=== PATIENT | male | born 1965 | race Caucasian/White ===

== ENCOUNTER → 2018-06-08 10:31 | Outpatient (CLI) | payer OTHER, SELFPAY ==
--- NOTE | 2018-06-08 | DI.RAD.S_ITS ---
PROCEDURE: XR KNEE RT 1TO2V INDICATIONS: RIGHT KNEE PAIN TECHNIQUE: 2 views of the knee were acquired. COMPARISON: [facility], , XR KNEE 2V RIGHT, 12/21/2001, 11:13. FINDINGS: Bones: No fractures or dislocations. No suspicious bony lesions. Soft tissues: No joint effusion. No suspicious soft tissue calcifications. IMPRESSION: No fracture or dislocation. If clinical symptoms persist or clinical suspicion for pathology is high, a repeat examination in 7-10 days, or advanced imaging such as CT or MRI is suggested for further evaluation. Dictated by: Corrine Mendez M.D. on 06/08/2018 at 13:37 Approved by: Corrine Mendez M.D. on 06/08/2018 at 13:38
[2018-06-11 23:00] LABS: Albumin 4.5 g/dL (3.6-5.1); Sex Hormone Binding Globulin 82 nmol/L (10-50); Testosterone, Bioavailable 63.2 ng/dL (110.0-575.0); Testosterone, Total 519 ng/dL (250-1100); Testosterone,Free 30.7 pg/mL (46.0-224.0)
== END ==
PROVIDERS: PCP Internal Medicine; Visit Provider Internal Medicine
DX: R68.82 Decreased libido (principal); M25.561 Pain in right knee
CPT/HCPCS: 36415; 73560; 82040; 84270; 84403

== ENCOUNTER → 2018-06-26 07:56 | Outpatient (CLI) | payer OTHER, SELFPAY ==
[2018-06-26 09:40] LABS: Follicle Stimulating Hormone 4.44 mIU/mL; Luteinizing Hormone 2.69 mIU/mL
[2018-06-29 15:11] LABS: Albumin 4.2 g/dL (3.6-5.1); Sex Hormone Binding Globulin 73 nmol/L (10-50); Testosterone, Bioavailable 76.7 ng/dL (110.0-575.0); Testosterone, Total 588 ng/dL (250-1100); Testosterone,Free 39.8 pg/mL (46.0-224.0)
== END ==
PROVIDERS: PCP Internal Medicine; Visit Provider Internal Medicine
DX: R68.82 Decreased libido (principal)
CPT/HCPCS: 36415; 82040; 83001; 83002; 84270; 84403

== ENCOUNTER → 2021-02-12 16:57 | Outpatient (CLI) | payer OTHER, SELFPAY ==
[2021-02-12] MEDS: COVID-19 VACC #1, MRNA(MOD) 100 MCG/0.5 ML VIAL IM (17:08)
== END ==
PROVIDERS: PCP Family Medicine; Visit Provider Internal Medicine
DX: Z23 Encounter for immunization (principal)
CPT/HCPCS: 0011A; 91301

== ENCOUNTER → 2021-03-13 11:55 | Outpatient (CLI) | payer OTHER, SELFPAY ==
[2021-03-13] MEDS: COVID-19 VACC #2, MRNA(MOD) 100 MCG/0.5 ML VIAL IM (12:10)
== END ==
PROVIDERS: PCP Family Medicine; Visit Provider Internal Medicine
DX: Z23 Encounter for immunization (principal)
CPT/HCPCS: 0012A; 91301

== ENCOUNTER → 2021-06-22 08:41 | Outpatient (CLI) | payer OTHER, SELFPAY ==
[2021-06-22 09:39] LABS: Add Manual Diff / Slide Review NO; Basophils Absolute Auto 0 /uL (0-100); Basophils Percent Auto 0.3 % (0-2); Eosinophils Absolute Auto 200 /uL (0-450); Eosinophils Percent Auto 2.8 % (2-4); Hematocrit 41.3 % (41-53); Hemoglobin 13.9 g/dL (13.5-17.5); Lymphocytes Absolute Auto 3700 /uL (1100-4500); Lymphocytes Percent Auto 52.3 % (25-40); Mean Corpuscular HGB Conc 33.7 % (30-36); Mean Corpuscular Hemoglobin 30.6 PG (26-34); Mean Corpuscular Volume 90.7 fL (80-100); Monocytes Absolute Auto 700 /uL (0-900); Monocytes Percent Auto 10.1 % (3-14); Neutrophils Absolute Auto 2500 /uL (1500-7000); Neutrophils Percent Auto 34.5 % (50-75); Platelet Count 199 X10^3/uL (150-400); Red Blood Cell Count 4.55 X10^6/uL (4.5-5.9); Red Cell Distribution Width 12.8 % (11.6-14.8); White Blood Cell Count 7.1 X10^3/uL (4.5-11.0)
[2021-06-22 10:10] LABS: Alanine Aminotransferase 28 IU/L (<50); Albumin 4.2 g/dL (3.5-5.0); Albumin Globulin Ratio 1.5 (1.0-2.8); Alkaline Phosphatase 61 U/L (38-126); Aspartate Aminotransferase 32 IU/L (17-59); BUN Creatinine Ratio 27.5 (6-22); Bilirubin Total 0.5 mg/dL (0.2-1.3); Blood Urea Nitrogen 19 mg/dL (9-20); Calcium 9.6 mg/dL (8.4-10.2); Carbon Dioxide 27 mmol/L (22-32); Chloride 107 mmol/L (98-107); Cholesterol 215 mg/dL (140-199); Estimated Glomerular Filt Rate > 60.0 mL/min (>60); Globulin 2.8 g/dL (1.7-4.1); Glucose 110 mg/dL (70-100); HDL Cholesterol 67 mg/dL (40-60); HEMOLYSIS < 15 (0-50); LDL Cholesterol Calculated 133 mg/dL (<100); Potassium 4.3 mmol/L (3.4-5.1); Sodium 140 mmol/L (137-145); Triglycerides 75 mg/dL (35-150)
[2021-06-22 10:38] LABS: Prostate Specific Antigen 3.59 ng/mL (0.10-4.00)
== END ==
PROVIDERS: PCP Family Medicine; Referring Provider Family Medicine; Visit Provider Family Medicine
DX: Z00.00 Encounter for general adult medical examination without abnormal findings (principal)
CPT/HCPCS: 36415; 80053; 80061; 84153; 85025

== ENCOUNTER → 2021-07-30 13:17 | Outpatient (ROUT) | payer OTHER, SELFPAY ==
[2021-07-30 14:01] LABS: COVID19 -Nasal RAPID Negative (Negative)
== END ==
PROVIDERS: PCP Family Medicine; Visit Provider Family Medicine
DX: Z20.822 Contact with and (suspected) exposure to COVID-19 (principal)
CPT/HCPCS: 87635

== ENCOUNTER → 2021-08-19 13:12 | Outpatient (ROUT) | payer OTHER, SELFPAY ==
[2021-08-19 16:09] LABS: COVID19 -Nasal RAPID POSITIVE (Negative)
== END ==
PROVIDERS: PCP Family Medicine; Visit Provider Family Medicine
DX: U07.1 COVID-19 (principal)
CPT/HCPCS: 87635

== ENCOUNTER → 2022-01-01 08:17 | Outpatient (CLI) | payer OTHER, SELFPAY ==
[2022-01-01 09:02] LABS: Hemoglobin A1C% w Est Avg Glu 5.4 % (4.0-6.0)
[2022-01-01 09:15] LABS: Alanine Aminotransferase 31 IU/L (<50); Albumin 4.4 g/dL (3.5-5.0); Albumin Globulin Ratio 1.8 (1.0-2.8); Alkaline Phosphatase 63 U/L (38-126); Aspartate Aminotransferase 31 IU/L (17-59); BUN Creatinine Ratio 19.7 (6-22); Bilirubin Total 0.3 mg/dL (0.2-1.3); Blood Urea Nitrogen 12 mg/dL (9-20); Calcium 9.5 mg/dL (8.4-10.2); Carbon Dioxide 28 mmol/L (22-32); Chloride 108 mmol/L (98-107); Cholesterol 196 mg/dL (140-199); Estimated Glomerular Filt Rate > 60.0 mL/min (>60); Globulin 2.5 g/dL (1.7-4.1); Glucose 116 mg/dL (70-100); HDL Cholesterol 53 mg/dL (40-60); HEMOLYSIS < 15 (0-50); LDL Cholesterol Calculated 111 mg/dL (<100); Potassium 4.3 mmol/L (3.4-5.1); Sodium 141 mmol/L (137-145); Total Protein 6.9 g/dL (6.3-8.2); Triglycerides 162 mg/dL (35-150)
[2022-01-01 09:42] LABS: TSH w/ Reflex to FT4 1.55 uIU/mL (0.47-4.68)
[2022-01-05 18:35] LABS: Percent Free Testosterone 1.49 % (1.50-4.20); Testosterone Free 9.56 ng/dL (5.00-21.00); Testosterone Total 641.6 ng/dL (264.0-916.0)
== END ==
PROVIDERS: PCP Family Medicine; Referring Provider Family Medicine; Visit Provider Family Medicine
DX: E29.1 Testicular hypofunction (principal); R73.9 Hyperglycemia, unspecified
CPT/HCPCS: 36415; 80053; 80061; 83036; 84402; 84403; 84443

== ENCOUNTER → 2022-10-09 14:28 | Outpatient (CLI) | payer OTHER, SELFPAY ==
--- NOTE | 2022-10-09 14:29 | DI.RAD.S_ITS ---
PROCEDURE: XR CHEST 2V INDICATIONS: chronic dyspnea post covid TECHNIQUE: 2 views of the chest were acquired. COMPARISON: None. FINDINGS: Surgical changes and devices: None. Lungs and pleura: Lungs are clear. No pleural effusions or pneumothorax. Mediastinum: Mediastinal contours are normal. Heart size is normal. Bones and chest wall: No suspicious bony abnormalities. Soft tissues appear unremarkable. IMPRESSION: No acute cardiopulmonary process demonstrated radiographically. Dictated by: Reagan Dudley M.D. on 10/09/2022 at 15:22 Approved by: Reagan Dudley M.D. on 10/09/2022 at 15:23
== END ==
PROVIDERS: PCP Family Medicine; Referring Provider Family Medicine; Visit Provider Family Medicine
DX: U09.9 Post COVID-19 condition, unspecified (principal); R06.09 Other forms of dyspnea; R53.83 Other fatigue
CPT/HCPCS: 71046

== ENCOUNTER → 2022-12-31 14:58 | Outpatient (CLI) | payer OTHER, SELFPAY ==
--- NOTE | 2023-01-02 07:37 | PM.PFT.1 ---
Pulmonary Function Test Referral & Results Date Patient Seen: 12/31/22 Requesting provider: Ash Oscar Results: The spirometry demonstrates an FVC of 5.42 L which is 104% of predicted. The FEV1 was measured at 4.04 L which is 102% of predicted. The FEV1/FVC ratio was 75 which is 98% of predicted. Following the administration of bronchodilator there was an 18% improvement in FEF 25-75%. Lung volumes show an SVC of 5.64 L which is 111% of predicted. The diffusing capacity was measured at 31.37 which is 89% of predicted. The maximum voluntary ventilation was normal Interpretation: This study demonstrates normal pulmonary function
== END ==
PROVIDERS: PCP Family Medicine; Referring Provider Family Medicine; Visit Provider Family Medicine
DX: R06.09 Other forms of dyspnea (principal); F17.210 Nicotine dependence, cigarettes, uncomplicated; U09.9 Post COVID-19 condition, unspecified
CPT/HCPCS: 94060; 94726; 94729

== ENCOUNTER → 2023-12-19 07:50 | Outpatient (CLI) | payer OTHER, SELFPAY ==
[2023-12-19 08:38] LABS: Add Manual Diff / Slide Review NO; Basophils Absolute Auto 0 /uL (0-100); Basophils Percent Auto 0.3 % (0-2); Eosinophils Absolute Auto 300 /uL (0-450); Eosinophils Percent Auto 3.1 % (2-4); Hematocrit 41.4 % (41-53); Hemoglobin 14.1 g/dL (13.5-17.5); Lymphocytes Absolute Auto 4100 /uL (1100-4500); Lymphocytes Percent Auto 50.6 % (25-40); Mean Corpuscular Hemoglobin 30.9 PG (26-34); Mean Corpuscular Volume 90.9 fL (80-100); Monocytes Absolute Auto 700 /uL (0-900); Monocytes Percent Auto 8.6 % (3-14); Neutrophils Absolute Auto 3000 /uL (1500-7000); Neutrophils Percent Auto 37.4 % (50-75); Platelet Count 181 X10^3/uL (150-400); Red Blood Cell Count 4.55 X10^6/uL (4.5-5.9); Red Cell Distribution Width 12.9 % (11.6-14.8)
[2023-12-19 08:53] LABS: Hemoglobin A1C% w Est Avg Glu 5.2 % (4.0-6.0)
[2023-12-19 09:09] LABS: Alanine Aminotransferase 28 IU/L (<50); Albumin 4.1 g/dL (3.5-5.0); Albumin Globulin Ratio 1.3 (1.0-2.8); Alkaline Phosphatase 66 U/L (38-126); Aspartate Aminotransferase 32 IU/L (17-59); BUN Creatinine Ratio 24.2 (6-22); Bilirubin Total 0.7 mg/dL (0.2-1.3); Blood Urea Nitrogen 15 mg/dL (9-20); Calcium 9.2 mg/dL (8.4-10.2); Carbon Dioxide 29 mmol/L (22-32); Chloride 104 mmol/L (98-107); Cholesterol 203 mg/dL (140-199); Estimated Glomerular Filt Rate > 60 mL/min (>60); Globulin 3.1 g/dL (1.7-4.1); Glucose 112 mg/dL (70-100); HDL Cholesterol 54 mg/dL (40-60); HEMOLYSIS < 15 (0-50); LDL Cholesterol Calculated 133 mg/dL (<100); Potassium 4.2 mmol/L (3.4-5.1); Sodium 138 mmol/L (137-145); Total Protein 7.2 g/dL (6.3-8.2); Triglycerides 79 mg/dL (35-150)
[2023-12-21 16:57] LABS: Hep C Virus Ab w/Reflex Quant NEGATIVE s/c (NEGATIVE)
[2023-12-27 06:51] LABS: Percent Free Testosterone 1.26 % (1.50-4.20); Testosterone Free 8.02 ng/dL (5.00-21.00); Testosterone Total 636.3 ng/dL (264.0-916.0)
== END ==
LOC: LAB 07:51
PROVIDERS: PCP Family Medicine; Referring Provider Family Medicine; Visit Provider Family Medicine
DX: R73.9 Hyperglycemia, unspecified (principal); E78.5 Hyperlipidemia, unspecified; E29.1 Testicular hypofunction; Z00.00 Encounter for general adult medical examination without abnormal findings; Z12.5 Encounter for screening for malignant neoplasm of prostate
CPT/HCPCS: 36415; 80053; 80061; 83036; 84402; 84403; 85025; 86803; G0103

== ENCOUNTER → 2024-01-26 11:16 | Outpatient (CLI) | payer OTHER, SELFPAY ==
--- NOTE | 2024-01-26 11:18 | DI.RAD.S_ITS ---
PROCEDURE: XR LUMBAR SPINE 2-3V INDICATIONS: lumbar strain TECHNIQUE: 3 views of the lumbar spine were acquired. COMPARISON: [facility], , L-SPINE MINIMUM 4 VIEWS, 09/07/2017, 16:13. FINDINGS: Bones: 5 [id number] vertebrae are present. There is normal bony alignment. No vertebral body compression fractures. No suspicious bony lesions. Degenerative changes are redemonstrated throughout the lumbar spine most severe at L2-3, unchanged from the study dated 09/07/17. Soft tissues: Overlying bowel gas pattern is normal. No suspicious soft tissue calcifications. IMPRESSION: Stable degenerative change. No new compression deformities. Dictated by: Frances Ramirez M.D. on 01/26/2024 at 12:51 Approved by: Frances Ramirez M.D. on 01/26/2024 at 12:52
== END ==
LOC: RAD 11:17
PROVIDERS: PCP Family Medicine; Referring Provider Family Medicine; Visit Provider Family Medicine
DX: S39.012A Strain of muscle, fascia and tendon of lower back, initial encounter (principal); M47.816 Spondylosis without myelopathy or radiculopathy, lumbar region
CPT/HCPCS: 72100

== ENCOUNTER → 2024-03-24 16:39 | Outpatient (CLI) | payer OTHER, SELFPAY ==
[2024-03-24 18:13] LABS: TSH w/ Reflex to FT4 2.97 uIU/mL (0.47-4.68)
[2024-03-24 18:34] LABS: Vitamin B12 Reflex MMA if <400 326 pg/mL (239-931)
[2024-03-29 02:28] LABS: Methylmalonic Acid,Serum 280 nmol/L (0-378)
== END ==
PROVIDERS: PCP Family Medicine; Referring Provider Family Medicine; Visit Provider Family Medicine
DX: Z12.5 Encounter for screening for malignant neoplasm of prostate (principal); R41.3 Other amnesia; R97.20 Elevated prostate specific antigen [PSA]
CPT/HCPCS: 36415; 82607; 83921; 84443; G0103

== ENCOUNTER → 2024-03-25 13:00 | Outpatient (CLI) | payer OTHER, SELFPAY ==
[2024-03-25 13:21] LABS: Appearance Urine UA CLOUDY; Bilirubin Urine UA NEGATIVE (NEGATIVE); Color Urine UA YELLOW; Glucose Urine UA NEGATIVE (Negative); Ketones Urine UA NEGATIVE (NEGATIVE); Leukocyte Esterase Urine UA NEGATIVE (NEGATIVE); Nitrite Urine UA NEGATIVE (Negative); Occult Blood Urine UA 3+ (Negative); Protein Urine UA NEGATIVE (Negative); Specific Gravity Urine UA >=1.030 (1.000-1.035); Urobilinogen Urine UA 0.2 E.U./dL (0.2); pH Urine UA 5.5 (4.5-8.0)
[2024-03-25 13:22] LABS: Urine Volume 10mL (spun)
[2024-03-25 13:25] LABS: Amorphous Sediment Urine 3+; Bacteria Urine None Seen; RBC Urine None Seen (0-5/HPF); Squamous Epithelial Cell Urine None Seen (0-5/HPF); WBC Urine None Seen (0-5/HPF)
[2024-03-25 13:26] LABS: Culture Indicated Urine Cult Not Indicated
== END ==
PROVIDERS: PCP Family Medicine; Referring Provider Family Medicine; Visit Provider Family Medicine
DX: R41.3 Other amnesia (principal); R97.20 Elevated prostate specific antigen [PSA]
CPT/HCPCS: 81001

== ENCOUNTER → 2024-05-23 14:38 | Outpatient (CLI) | payer OTHER, SELFPAY ==
[2024-05-23 15:38] LABS: Appearance Urine UA CLEAR; Bilirubin Urine UA NEGATIVE (NEGATIVE); Color Urine UA YELLOW; Glucose Urine UA NEGATIVE (Negative); Ketones Urine UA NEGATIVE (NEGATIVE); Leukocyte Esterase Urine UA NEGATIVE (NEGATIVE); Nitrite Urine UA NEGATIVE (Negative); Occult Blood Urine UA 2+ (Negative); Protein Urine UA NEGATIVE (Negative); Specific Gravity Urine UA 1.025 (1.000-1.035); Urobilinogen Urine UA 0.2 E.U./dL (0.2)
[2024-05-23 15:47] LABS: RBC Urine 10-30/HPF (0-5/HPF); Urine Volume 10mL (spun); WBC Urine None Seen (0-5/HPF)
[2024-05-23 15:48] LABS: Bacteria Urine None Seen; Culture Indicated Urine Cult Not Indicated; Squamous Epithelial Cell Urine None Seen (0-5/HPF)
== END ==
LOC: LAB 14:39
PROVIDERS: PCP Family Medicine; Referring Provider Family Medicine; Visit Provider Family Medicine
DX: R31.9 Hematuria, unspecified (principal)
CPT/HCPCS: 81001

== ENCOUNTER → 2024-08-29 09:07 | Outpatient (CLI) | payer OTHER, SELFPAY ==
[2024-08-29 09:37] LABS: Estimated Glomerular Filt Rate > 60 mL/min (>60)
== END ==
PROVIDERS: PCP Family Medicine; Referring Provider Urology; Visit Provider Urology
DX: R31.0 Gross hematuria (principal)
CPT/HCPCS: 36415; 82565

== ENCOUNTER 2024-10-27 12:34 | Day surgery (SDC) | payer OTHER, SELFPAY ==
[2024-10-27] VITALS (7 sets, daily range): BP systolic 92–126; BP diastolic 54–81; PULSE 65–85; RESP 12–18; TEMP 36.4–36.6; O2SAT 95–99
--- NOTE | 2024-10-27 | PATH_ITS ---
[facility] Accession Number: [id number] No. of containers..03 Tissue . 01 Material submitted: . PART A: colon - ASCENDING POLYP PART B: colon - TRANSVERSE POLYP PART C: colon - DESCENDING POLYP . 01 Diagnosis: A. ASCENDING COLON POLYP, BIOPSY: Tubular adenoma. . B. TRANSVERSE COLON POLYP, BIOPSY: Tubular adenoma. . C. DESCENDING COLON POLYP, BIOPSY: Tubular adenoma. MRV 10/31/2024 1218 Local . 01 Electronically signed: . Vianey Teixeira MD, Pathologist NPI- [id number] . 01 Gross description: . A. Received in formalin labeled with two patient identifiers and designated ascending colon polyp, and consists of a 0.8 x 0.5 x 0.1 cm flat and valencia-brown soft tissue which is entirely submitted in cassette A1. B. Received in formalin labeled with two patient identifiers and designated transverse colon polyp, and consists of a 0.4 cm in greatest dimension valenica-brown soft tissue which is entirely submitted in cassette B1. C. Received in formalin labeled with two patient identifiers and designated descending colon polyp, and consists of a 0.4 cm in greatest dimension valencia irregular soft tissue which is entirely submitted in cassette C1. ([id number]) /CRISTAL 10/28/2024 0907 Local . 01 Pathologist provided ICD-10: D12.2, D12.3, D12.4 . 01 CPT . 759779, 950665, 506309 Specimen Comment: A courtesy copy of this report has been sent to [phone] Performed at: [address] [facility], [place], [place] [id number] MD Damian Singh MD Phone: [phone]
--- NOTE | 2024-10-27 12:57 | PM.HP.1 ---
History of Present Illness History of Present Illness Date Patient Seen: 10/27/24 Time Patient Seen: 12:57 Chief complaint: Colonoscopy Narrative: Jason is 59-year-old man here for a colonoscopy for abnormal imaging of the colon. See the office note from August for details. PENDING SALE TO [facility] Medical History Seasonal allergies Ocular migraine ADHD Back pain Foot pain (~2019) Chicken pox Hyperglycemia Hyperlipidemia Hypogonadism in male Surgical History Anesthesia History of colonoscopy Family History Father Parkinson's disease History of heart disease Hyperlipidemia Hypertension Mother Cancer Brother History of heart attack History of heart disease Daughter Eczema Family/Other Kidney stones Social History marital status: number of children: 3 Smoking Status: Former smoker alcohol intake: current caffeine: Yes Type(s) of exercise: regular exercise frequency: 5-6 times per week duration: > 90 minutes/day Meds Home Medications and Allergies Home Medications Medication Instructions Recorded Confirmed Type otc flonase inhalation 12/12/21 09/21/24 History Allergies Allergy/AdvReac Type Severity Reaction Status Date / Time Opioids - Morphine Analogues Allergy Severe Nausea Verified 10/27/24 12:55 Exam Const General: No acute distress Assessment & Plan Assessment and plan (1) Colon wall thickening: Status: Acute Plan Colonoscopy Time-Based Coding :: [TOTAL MINUTES] spent with patient and on the chart (including review of chart, obtaining history, exam, reviewing outside data, placing orders, documenting exam and treatment plan, and counseling patient) on [DATE].
--- NOTE | 2024-10-27 13:59 | PM.OP.COLON ---
Operative Date/Time/Diagnoses Date of procedure: 10/27/24 Time of procedure: 13:59 Pre-op diagnosis: Abnormal imaging of the colon Post-op diagnosis: same Procedure & Clinicians Study performed: Colonoscopy Same procedure as scheduled: Yes Surgeon: Ashvin Velazquez Procedure Notes Procedure in detail: Surgeon: Ashvin Velazquez MD Anesthesia: Honey Layton CRNA Procedure: The patient was brought to the endoscopy suite, placed in left lateral decubitus position. The patient was connected to monitoring devices. A time-out was performed. Sedation was administered. Once the patient was adequately sedated, a digital rectal exam was performed and was normal. The scope was then inserted and advanced to the cecum where the appendiceal orifice was identified and photographed. The scope was then slowly withdrawn over greater than 6 minutes. The mucosa was thoroughly inspected. There was a 5 mm polyp in the ascending colon removed with a cold snare. There was a 5 mm polyp in the transverse colon removed with a cold snare. There was a 5 mm polyp in the descending colon removed with a cold snare. The scope was retroflexed in the rectum. No other abnormalities were noted. The scope was straightened and removed. The patient was awakened and brought to recovery. Scope withdrawal time: 11 minutes Sedation time: 18 minutes EBL: 3 mL Findings: 5 mm polyps in the ascending colon, transverse colon and descending colon Post-procedure Disposition: PACU
== END 2024-10-27 14:48 | disposition home or self-care (01) ==
PROVIDERS: PCP Family Medicine; Referring Provider Surgery; Visit Provider Surgery
PROC: 0DJD8ZZ Inspection of Lower Intestinal Tract, Via Natural or Artificial Opening Endoscopic (ICD-10-PCS; CPT 45378; principal; 2024-10-27 13:30)
DX: D12.2 Benign neoplasm of ascending colon (principal); D12.3 Benign neoplasm of transverse colon; D12.4 Benign neoplasm of descending colon
CPT/HCPCS: 45385; J2704

== ENCOUNTER → 2025-10-03 07:06 | Outpatient (CLI) | payer OTHER, SELFPAY ==
[2025-10-03 08:06] LABS: Add Manual Diff / Slide Review NO; Hematocrit 40.4 % (41-53); Hemoglobin 13.9 g/dL (13.5-17.5); Lymphocytes Absolute Auto 3300 /uL (1100-4500); Mean Corpuscular HGB Conc 34.5 % (30-36); Mean Corpuscular Hemoglobin 31.0 PG (26-34); Mean Corpuscular Volume 89.9 fL (80-100); Platelet Count 193 X10^3/uL (150-400)
[2025-10-03 08:26] LABS: Alanine Aminotransferase 26 IU/L (<50); Albumin 4.4 g/dL (3.5-5.0); Albumin Globulin Ratio 1.6 (1.0-2.8); Alkaline Phosphatase 71 U/L (38-126); Blood Urea Nitrogen 18 mg/dL (9-20); Calcium 9.1 mg/dL (8.4-10.2); Carbon Dioxide 25 mmol/L (22-32); Chloride 106 mmol/L (98-107); Cholesterol 196 mg/dL (140-199); Estimated Glomerular Filt Rate > 60 mL/min (>60); Globulin 2.7 g/dL (1.7-4.1); Glucose 114 mg/dL (70-99); HDL Cholesterol 54 mg/dL (40-60); HEMOLYSIS < 15 (0-50); Potassium 4.2 mmol/L (3.4-5.1); Sodium 140 mmol/L (137-145); Total Protein 7.1 g/dL (6.3-8.2); Triglycerides 87 mg/dL (35-150)
[2025-10-03 08:56] LABS: TSH w/ Reflex to FT4 1.90 uIU/mL (0.47-4.68)
== END ==
PROVIDERS: PCP Family Medicine; Referring Provider Family Medicine; Visit Provider Family Medicine
DX: Z12.5 Encounter for screening for malignant neoplasm of prostate (principal); Z00.00 Encounter for general adult medical examination without abnormal findings; K63.9 Disease of intestine, unspecified; N40.1 Benign prostatic hyperplasia with lower urinary tract symptoms; R31.0 Gross hematuria; R73.9 Hyperglycemia, unspecified; E78.2 Mixed hyperlipidemia; R53.82 Chronic fatigue, unspecified
CPT/HCPCS: 36415; 80053; 80061; 84443; 85025; G0103